=== PATIENT | male | born 1970 | race Two or more races ===

== ENCOUNTER 2022-07-07 10:59 | Emergency (ER) | payer MEDICAID ==
[~2022-07-07] VITALS: Ht 175.3 cm; Wt 104.3 kg
--- NOTE | 2022-07-07 11:05 | NUR ---
REceved pt 52 yrs male waling in from home c/o dizzness awake and alert diness any hx trama
--- NOTE | 2022-07-07 11:30 | NUR ---
Seen bY DR. GAXIOLA
--- NOTE | 2022-07-07 12:00 | NUR ---
TO CT SCAN OF HEAD
[2022-07-07 12:08] LABS: BASOPHILS % (AUTO) 0.8 % (0.0-2.0); EOSINOPHILS % (AUTO) 1.8 % (0.0-6.0); HEMATOCRIT 46 % (39-51); HEMOGLOBIN 15.2 g/dL (13.5-17.5); LYMPHOCYTES # (AUTO) 1.6 K/uL (0.8-4.8); LYMPHOCYTES % (AUTO) 25.8 % (20.0-44.0); MEAN CORPUSCULAR HGB CONC 33 g/dl (31.0-36.0); MEAN CORPUSCULAR VOLUME 94 fL (80-96); MONOCYTES # (AUTO) 0.5 K/uL (0.1-1.30); MONOCYTES % (AUTO) 8.3 % (2.0-12.0); NEUTROPHILS % (AUTO) 63.3 % (43.0-81.0); PLATELET COUNT (AUTO) 246 K/uL (150-450); RED BLOOD CELL COUNT(AUTO) 4.89 MIL/uL (4.5-6.0); WHITE BLOOD COUNT (AUTO) 6.3 K/uL (4.3-11.0)
[2022-07-07 12:19] LABS: CALCIUM, SERUM 9.4 mg/dL (8.5-10.1); CARBON DIOXIDE 24 mmol/L (21-32); CHLORIDE 105 mmol/L (98-107); CREATININE 1.1 mg/dL (0.6-1.3); GLUCOSE 129 mg/dL (74-106); POTASSIUM 3.8 mmol/L (3.5-5.1); SODIUM SERUM 140 mmol/L (136-145); UREA NITROGEN, BLOOD 13 mg/dL (7-18)
[2022-07-07] MEDS ORDERED: MECLIZINE HCL 25 MG TABLET ONE (12:21)
[2022-07-07] MEDS ORDERED: MECLIZINE HCL 12.5 MG TABLET PO ONE (12:30)
--- NOTE | 2022-07-07 12:40 | NUR ---
PT Improving AND DINESES ANY DIZZNESS
[2022-07-07] MEDS ORDERED: ONDA4TAB5 PO (13:12)
[2022-07-07] MEDS ORDERED: MECL-159 PO (13:12)
--- NOTE | 2022-07-07 13:20 | NUR ---
Patient discharged to home in stable condition. Written and verbal after care instructions given. Patient verbalizes understanding of instruction.
[2022-07-07 13:27] VITALS: BP 120/68
== END 2022-07-07 13:28 | disposition home or self-care (01) ==
LOC: ER 11:11
DX: H81.10 Benign paroxysmal vertigo, unspecified ear (principal); I10 Essential (primary) hypertension; Z79.899 Other long term (current) drug therapy
CPT/HCPCS: 99285; 70450; 71045; 93005; 85025; 80048; 36415; 84484; J8597

== ENCOUNTER 2022-07-26 17:05 | Emergency (ER) | payer MEDICAID ==
[~2022-07-26] VITALS: Ht 172.7 cm; Wt 59.0 kg
[~2022-07-26 17:05] MED LIST: MECL-159 PO; ONDA4TAB5 PO
[2022-07-26] MEDS ORDERED: HYDR30CR79 TP (17:37)
[2022-07-26] MEDS ORDERED: POLY17PO4 PO (17:37)
--- NOTE | 2022-07-26 17:40 | NUR ---
sent by [facility] due to rectal pain x 4 days 07/22 ps. HE HAS A MASS PROTRUDING PER ANUS, DIAGNOSED THROMBOSED EXTERNAL HEMORRHOIDS.
[2022-07-26 18:41] VITALS: BP 128/77
--- NOTE | 2022-07-26 18:42 | NUR ---
Patient discharged to home in stable condition. Written and verbal after care instructions given. Patient verbalizes understanding of instruction.
== END 2022-07-26 18:41 | disposition home or self-care (01) ==
LOC: ER 17:07
DX: K64.5 Perianal venous thrombosis (principal); I10 Essential (primary) hypertension

== ENCOUNTER 2023-04-30 20:02 | Emergency (ER) | payer MEDICAID, OTHER ==
[~2023-04-30] VITALS: Ht 172.7 cm; Wt 102.1 kg
[~2023-04-30 20:02] MED LIST changes: +POLY17PO4 PO
[2023-04-30 20:47] VITALS: TEMP 98.1
[2023-04-30] MEDS ORDERED: KETOROLAC TROMETHAMINE 15 MG/ML VIAL ONE (21:19)
[2023-04-30] MEDS ORDERED: METOCLOPRAMIDE HCL 10 MG/2 ML VIAL ONE (21:19)
[2023-04-30] MEDS ORDERED: diphenhydrAMINE HCL 50 MG/ML VIAL ONE (21:19)
[2023-04-30] MEDS: IV NS 0.9% 1,000 ML BAG IV ONE (21:20)
[2023-04-30] MEDS: KETOROLAC TROMETHAMINE 15 MG/ML VIAL IV ONE (21:21)
[2023-04-30] MEDS: diphenhydrAMINE HCL 50 MG/ML VIAL IV ONE (21:23)
[2023-04-30] MEDS: METOCLOPRAMIDE HCL 10 MG/2 ML VIAL IV ONE (21:30)
[2023-04-30] MEDS ORDERED: METO-295 PO (21:49)
[2023-04-30 22:51] VITALS: BP 129/89; O2SAT 98
== END 2023-04-30 22:45 | disposition home or self-care (01) ==
LOC: ER 20:11
DX: G43.909 Migraine, unspecified, not intractable, without status migrainosus (principal); I10 Essential (primary) hypertension; F32.A Depression, unspecified; Z79.899 Other long term (current) drug therapy
CPT/HCPCS: 99284; 96374; 96375; 96361; J1200; J2765; J7030; J1885